=== PATIENT | female | born 1970 | race Caucasian/White ===

== ENCOUNTER → 2022-04-13 10:06 | Outpatient (CLI) | payer OTHER, SELFPAY ==
--- NOTE | ~2022-04-13 | XR_ITS ---
EXAMINATION: XR lumbar spine 2-3V DATE: 04/13/2022 10:23 INDICATION: Lumbago with sciatica TECHNIQUE: Anteroposterior and lateral views of the lumbar spine, and cone-down lateral view of the l umbosacral junction were obtained. COMPARISON: None. FINDINGS: Alignment is normal. Vertebral body heights are normal. Moderate disc height loss at L5-S1 and T9-T10 and T10-T11. Mild disc height loss at T11-T12, L1-L2 and L3-L4. Multilevel mild lumbar facet osteoar thritis. Sacrum, bilateral sacral iliac joints and hip joints are normal. IUD in expected position pr ojecting over the central pelvis. IMPRESSION: 1. Moderate lower thoracic and lumbosacral spondylosis with mild intervening lumbar spondylosis. Reviewed, dictated and finalized at location A. IMPRESSION: 1. Moderate lower thoracic and lumbosacral spondylosis with mild intervening carlos mbar spondylosis.
== END ==
PROVIDERS: PCP Nurse Practitioner Family; Visit Provider Nurse Practitioner Family
DX: M54.40 Lumbago with sciatica, unspecified side (principal); M47.894 Other spondylosis, thoracic region; M47.896 Other spondylosis, lumbar region
CPT/HCPCS: 72100

== ENCOUNTER → 2022-06-21 07:04 | Outpatient (CLI) | payer OTHER, SELFPAY ==
--- NOTE | ~2022-06-21 | MR_ITS ---
EXAMINATION: MR lumbar spine wo con DATE: 06/21/2022 07:43 INDICATION: Lumbar radiculopathy TECHNIQUE: Magnetic resonance imaging (MRI) of the lumbar spine was performed without intravenous con trast. Sequences included sagittal T2-weighted FSE, sagittal T2-weighted FS FSE, sagittal T1-weighted FSE, and axial T2-weighted FSE. COMPARISON: None FINDINGS: 2-3 mm retrolisthesis L4 on L5 and L5-S1. Vertebral body heights are normal. Normal marrow signal. M oderate disc height loss with annular fissure at L5-S1. Mild disc desiccation with minimal disc heigh t loss at L3-L4 and L4-L5. The conus medullaris terminates at T12-L1. There is normal signal in the c audal spinal cord. Paravertebral soft tissues are unremarkable. The following disc levels are specifi ruddy discussed: T12-L1: The disc does not extend beyond the endplate margin. There is no facet joint osteoarthritis. There is no neural foraminal stenosis. There is no central canal stenosis. L1-L2: The disc does not extend beyond the endplate margin. There is mild right and minimal left face t joint osteoarthritis. There is no neural foraminal stenosis. There is no central canal stenosis. L2-L3: The disc does not extend beyond the endplate margin. There is mild right and minimal left face t joint osteoarthritis. There is no neural foraminal stenosis. There is no central canal stenosis. L3-L4: Disc is mildly bulging. There is mild bilateral facet joint osteoarthritis. There is no neural foraminal stenosis. There is no central canal stenosis. L4-L5: Disc is moderately bulging. There is mild right and mild to moderate left facet joint osteoart hritis. There is mild bilateral neural foraminal stenosis. There is minimal central canal stenosis. L5-S1: Disc is mildly bulging with superimposed annular fissure and small right paracentral disc extr usion with disc material extending a couple millimeter cephalad and caudal to the level of the endpla te margins There is mild left and minimal right facet joint osteoarthritis. There is mild right and m inimal left neural foraminal stenosis. There is no central canal stenosis. IMPRESSION: 1. Moderate disc height loss with annular fissure at L5-S1. Otherwise minimal to mild lumbar spondylo sis. Reviewed, dictated and finalized at location B. IMPRESSION: 1. Moderate disc height loss with annular fissure at L5-S1. Otherwise minimal t o mild lumbar spondylosis.
== END ==
PROVIDERS: PCP Nurse Practitioner Family; Visit Provider Nurse Practitioner Family
DX: M47.26 Other spondylosis with radiculopathy, lumbar region (principal)
CPT/HCPCS: 72148

== ENCOUNTER 2022-07-05 08:00 | Outpatient (RCR) | payer OTHER, SELFPAY ==
--- NOTE | 2022-05-25 14:28 | PTOPEVAL1 ---
Assessment and note entered by Kathya Sylvester, PT Evaluation Information Assessment Status Evaluation Diagnosis low back pain, chronic pain Onset consistant pain since 2012 Subjective Information Katerin reports: had xrays, show arthritis; insurance will not cover MRI until have PT; to have pain management appt Jun 11; to see neurologist for migraines Jun 14; has gained about 40# with taking a new meds, now stopped the med and working on wt loss; is walking for fitness,1 -1&1/2 miles; had PT in the past, still do some of the exercises that help: all 4 arch/sag, sitting trunk flexion; Reported Pain Level Pain Score Self Report range of 2-10/10 Additional Pain Score Comments increase pain in back with cleaning home-mopping, cleaning bath tub; transfer sit to stand; sitting 2-3 hours; stand 10 min; able to sleep, with meds , but if roll over wakes her up with back pain decrease pain with heat; have used home TENS in past, it is broken now; biofreeze; hot tub; maloxicam; Oswestry self assessment functional score of 36% limitation in activity level; Assessment PT Clinical Summary Katerin has the diagnosis of lumbago with sciatica and other pain. She reports chronic back pain, migraines, neck pain, B shoulder, knee and foot pain. She is going to have a breast reduction in Dec to help ease her neck,posterior shoulder and thoracic pain. Back pain is increased with sitting, standing, rolling over in bed, transfer from sit to stand; radicular pain into R LE to ankle and L to knee. Oswestry self assessment functional score of 36% limitation in activity level. With the evaluation, she has good flexibility of her trunk and hips; standing trunk flexion is more pain increase than extension; there is tenderness over sacrum and lower lumbar areas, with weakness over posterior trunk and hips. Skilled PT services are indicated for modalities to decrease pain, therapeutic exercises to strengthen her trunk and education for home exercises and methods of pain management. Plan of Care Interventions Electrical Stimulation,Hot Pack/Cold Pack,Manual Therapy,Mechanical Traction,Neuro Re-education, Patient/Caregiver Education,Therapeutic Activities, Therapeutic Exercise,Ultrasound PT Services [facility]
--- NOTE | 2022-05-25 14:29 | PCPTNOTE ---
at the evaluation appointment, pt reports she will be out of town for work training for the next 2 weeks, returning Jun 09. Treatment will begin when she returns.
--- NOTE | 2022-07-05 08:47 | PTOPPROG ---
Assessment and note entered by Kathya Sylvester, PT Evaluation Information Assessment Status Progress ----HOLD PT Diagnosis low back pain, chronic pain Onset consistant pain since 2012 Subjective Information Katerin reports: pain ebbs and flows, pain varies from day to day; some of the exercises feel better and help; had MRI of low back and going to get the results from the dr today; to have MRI of neck for headaches later today; has learned some tips to help her pain; does not feel like she needs any more therapy--want to see the dr and find out if have to have surgery or not; pain range of 2-10/10; achey, sometimes stabby pain; pain increases with activity and prolonged positions; pain decreases with heat/hot bath, pain cream numbs it a little; have ordered a stim unit for home use; used a back brace for traveling in the car distance and it helped; radicular pain into R LE to toes, tingling and numb/ radicular pain into L LE to knee at worst--intermittent into legs; reported standing tolerance 30-60 min; if sit to long, pain when going to stand up; rolling in bed increases pain--get stuck and problems moving and rolling over; self assessment Oswestry functional score of 52% limitation in activity level; discussed home stim unit use and pad placement for pain in back Assessment PT Clinical Summary Katerin has received 7 PT sessions. Compared to the initial evaluation: pain rating is the same; radicular pain into R LE is worse, from ankle into foot intermittent/ L LE pain same; self assessment Oswestry is worse, from 36% to 52% limitation in activity level; reported standing tolerance increased; continues to have pain with rolling in bed, sit to stand transfers; increase in trunk and hip strength; indep with home exercise program; educated on a few tips for pain management. The goals were partially achieved. Will place PT on HOLD--she is to see her dr and get results from MRI and discuss if she is a surgical candidate or not. If additional PT is indicated, pt is to obtain a new order for PT treatment to continue. Plan of Care PT Services Indicated HOLD PT, if to continue,need new orders These treatments will address the objective and functional deficits as defined above. The patient will be advanced safely and appropriately in order for the patient to progress towards his/her prior level of function. Additional exercises will be introduced and as well as a comprehensive home exercise program upon discharge, if needed, ?to ensure carryover of functional gains achieved in the clinic. This treatment plan has been reviewed and agreement upon by the patient.
--- NOTE | 2022-07-05 08:58 | PCPTNOTE ---
HOLD PT after today's reeval/progress report; she is going to see , await new orders if therapy is to continue; she may be having surgery/ consult for surgery;
--- NOTE | 2022-08-08 10:33 | PCPTNOTE ---
PHYSICAL THERAPY DISCHARGE 08-08-22 Attending Provider: Annette Lazo NP Patient:Katerin Israel Date of :1970 Mrs. Israel has not returned for any PT treatment, for the diagnosis of low back pain, since the reevaluation on 07/05/2022, therefore she will be discharged at this time. Refer to that report for her status at the last session. Thank you for referring this patient to [facility].
== END 2022-08-08 11:34 | disposition home or self-care (01) ==
LOC: ANHPT 08:00
PROVIDERS: PCP Nurse Practitioner Family; Referring Provider Nurse Practitioner Family; Visit Provider Nurse Practitioner Family
DX: M54.40 Lumbago with sciatica, unspecified side (principal); G89.29 Other chronic pain
CPT/HCPCS: 97014; 97110; 97140; 97161; G0283

== ENCOUNTER 2022-07-09 08:59 | Outpatient (CLI) | payer OTHER, SELFPAY ==
[2022-07-10 10:20] LABS: Kit Draw Collected
== END 2022-07-09 09:00 | disposition home or self-care (01) ==
LOC: ANHGOSHLAB 09:03
PROVIDERS: PCP Family Medicine; Visit Provider Nurse Practitioner Family
DX: F32.A Depression, unspecified (principal); R53.83 Other fatigue; E55.9 Vitamin D deficiency, unspecified; Z13.220 Encounter for screening for lipoid disorders; Z53.8 Procedure and treatment not carried out for other reasons
CPT/HCPCS: 99199; 36415

== ENCOUNTER 2022-08-11 09:06 | Outpatient (CLI) | payer OTHER, SELFPAY ==
--- NOTE | ~2022-08-11 | MM_ITS ---
EXAMINATION: MM scrn cayla implant BI w aniyah HISTORY: Screening mammogram TECHNIQUE: Craniocaudal and mediolateral oblique 3-D tomosynthesis images with implant displacement a nd synthetic 2-D images were generated. Craniocaudal and mediolateral oblique views of the breasts wi thout implant displacement were obtained using full field digital mammography. CAD analysis was submi tted and interpreted. COMPARISON: No prior mammogram is available for comparison at this institution. BREAST PARENCHYMAL COMPOSITION: There are scattered areas of fibroglandular density. FINDINGS: RIGHT BREAST: There is no evidence of suspicious mass, calcification, or architectural distortion to suggest malignancy. LEFT BREAST: A mass is present in the middle third outer breast 9 cm from the nipple. IMPRESSION: 1. Left breast mass. 2. Additional mammographic views and possible breast ultrasound are recommended. BI-RADS Category 0: Incomplete: Needs additional imaging evaluation. Reviewed, dictated and finalized at location A. WARE INTEGRATION DEVELOPER IMPRESSION: 1. Left breast mass. 2. Additional mammographic views and possible breast ultrasound are recommended . BI-RADS Category 0: Incomplete: Needs additional imaging evaluation.
== END 2022-08-11 09:07 | disposition home or self-care (01) ==
PROVIDERS: PCP Family Medicine; Visit Provider Surgery Plastic and Reconstructive Surgery
DX: Z12.31 Encounter for screening mammogram for malignant neoplasm of breast (principal); R92.8 Other abnormal and inconclusive findings on diagnostic imaging of breast
CPT/HCPCS: 77063; 77067

== ENCOUNTER 2022-08-21 01:02 | Day surgery (SDC) | payer OTHER, SELFPAY ==
[2022-08-09 16:54] VITALS: BMI 25.8
--- NOTE | 2022-08-09 16:58 | PC.NURSE ---
Report to the Outpatient Waiting Room, entrance under the green pavilion located off [facility], at time 0600 on date 08/21/22. Planned Procedure Time: 0730. Time changes happen often and if your time is changed the preop area will call you the afternoon before. - You and your visitor will be asked to self-screen and do not enter if you have any COVID symptoms. - Only one visitor is requested with a max of two and NO children visitors are allowed at this time. - The patient visitor may be requested to leave or wait in car when not with patient due to distancing restrictions. - A mask is optional within the hospital. Patients may have clear liquids (water, carbonated beverages, clear teas, apple juice) until 3 hours prior to surgery with a maximum of 20 ounces. - No food from midnight until time of surgery - Infants may have breast milk until 4 hours before surgery, infant formula 6 hours prior to surgery. - Children will be allowed to drink immediately following surgery. If applicable, please bring a bottle or sippy cup to assist with drinking. Juice, water, soda, and popsicles are readily available. For infants on formula, please bring formula the day of surgery. Pacifiers are allowed. Take the following medications with a SIP of water the morning of surgery: hold morning meds Medications to discontinue per physician supplements and vitamins Date to take last dose Please no make-up, nail comoran, hairspray, perfume, deodorant, or body powder the day of surgery. No jewelry (including any body piercings) or valuables the day of surgery, leave them at home. Please take a shower or bath the night before, or the morning of, surgery with an antibacterial soap. Wear comfortable, loose fitting clothing. Children are encouraged to wear pajamas. - Jewelry must be removed prior to entering the operating room. Rings and piercings that are not removed may be cut off. - The hospital will not accept responsibility for valuables. - Please leave all valuables, including medications, at home the day of surgery. If you are going home after surgery, a licensed courtesy bus driver must drive you home. - NO public transportation without another adult if you receive anesthesia. - We recommend that an adult stay with you for 24 hours following discharge. - We also recommend that you do not drive, make important decision, drink alcoholic beverages, or take any drugs that were not prescribed by your health care provider for at least 24 hours after your discharge time. For Pediatric surgeries, we recommend two adults accompany the child home. Follow any additional instructions given to you from your surgeon. If you or anyone in your household have experienced Covid symptoms in the past week, please notify your surgeon or the nurse liaison at the phone number below for possible testing. Telephone instructions given to _patient__and asked if any additional questions and then verbalized understanding. Patient advised to call surgeon office or pre surgery nurse liaison [phone] if any additional questions.
[2022-08-21] VITALS (7 sets, daily range): BP systolic 98–125; BP diastolic 69–79; PULSE 67–93; RESP 10–18; TEMP 36.6–36.9; O2SAT 98–100
[2022-08-21 06:35] LABS: Urine Cotinine NEGATIVE
[2022-08-21] MEDS: LACTATED RINGERS 1,000 ML 30 ML IV CONT ×2 (06:45→09:43)
--- NOTE | 2022-08-21 07:08 | WPDHPUPDATE1 ---
History and Physical Update Update Date/Time: 08/21/22 07:08 History and Physical has been reviewed, including an updated exam of the patient. There are NO changes in the patient's condition. Risks, benefits, and alternatives have been discussed and questions answered. Patient agrees to proceed with procedure.
--- NOTE | 2022-08-21 07:09 | P.OP_ITS ---
Procedure Note - Detailed Date of Procedure 08/21/22 Pre-op Diagnosis hx of breast augmentation, macromastia Post-op Diagnosis Same Procedure Performed Bilateral breast implant removal with bilateral reduction mammaplasty Surgeon Dane Lee MD Anesthesia General Findings Implants removed: Bilateral [place] 50cc implants Right [id number] Left [id number] Superior Pedicle Inverted T Tissue removed: Right - 351.8 grams Left - 355.7 grams Description of Procedure She is here today for bilateral breast implant removal and bilateral breast reduction. Previously and again today the risks, benefits, alternatives were discussed in extensive detail. I wanted her to be very realistic about the risks involved as well as expectations. She understands we may not remove entire capsule. She understands the capsule and breast tissue would be additional expense to her. We discussed aftercare and what to monitor for. She understands we can never guarantee final breast size and there will always be asymmetry. I was very upfront and honest about the risks of sensation change and even nipple loss (). Made sure answered all of her questions to her satisfaction today and consent was obtained. She was marked in the preoperative holding area with their verification. The patient was taken to the operating room placed supine on the operating table. Anesthesia was provided by anesthesiology. She was prepped and draped in a standard sterile fashion. A surgical time-out was taken. 1% lidocaine and 0.25% marcaine with epi was used as a field block. I incised along the IMF and dissection was continued until the capsule was identified. I elevated just superficial to the capsule. The implant and capsule was removed (partial capsulectomy). I then copiously irrigated with saline solution and verified a strict hemostasis. I then sat the patient and re-verified the markings. I then returned the patient supine. I marked out the nipple-areolar complex at 42 mm. I then de-epithelialized the pedicle. The pedicle was well left well more than 2 cm in thickness. I then removed the inferior portion of the breast as well as the central keel to get shape based on preoperative planning. At this point copiously irrigated with saline solution and verified a strict hemostasis. I reapproximated the pillars using a 2-0 PDS. I tailor tacked the breast into place with tone. She was placed in a sitting position. I verified the nipple-areolar complex position based on preoperative markings, intraoperative measurements, and observation which were in full agreement. This nipple-areolar complex was marked at 42 mm in size. I then placed supine and de-epithelialized this. Nipple-areolar complex was inset with 3-0 Monocryl. I closed IMF deep with 1 strattafix. I closed the vertical incision with 3-0 Monocryl in the IMF with 3- 0 stratafix. Then everything was closed using a running subcuticular 4-0 Monocryl followed by Steri-Strips. A dressing was placed followed by surgical bra. Patient was awoke and taken to PACU without difficulty. All instrument sponge counts were correct at the end of the case. Estimated Blood Loss 40 Drains No Packing No Pathology Yes (Bilateral breast implant capsules and breast tissue.) Complications No immediate complications Condition Stable Disposition PACU
--- NOTE | 2022-08-21 07:09 | WPDHPUPDATE1 ---
History and Physical Update Update Date/Time: 08/21/22 07:09 History and Physical has been reviewed, including an updated exam of the patient. There are NO changes in the patient's condition. Risks, benefits, and alternatives have been discussed and questions answered. Patient agrees to proceed with procedure.
--- NOTE | 2022-08-21 07:13 | WPDANESEPPF ---
Anes - Initial Pre Proc Eval Procedure: Operation Date: 08/21/22 07:30 Proposed Procedures p Removal of Bilateral Breast Implants - Dane Lee MD s Bilateral Breast Reduction - Dane Lee MD Date/Time: 08/21/22 07:13 Surgeon: Dane Lee MD Pre Op Diagnosis: hx of breast augmentation, macromastia Patient Data Age: 51 Gender: F Height: 1.73 m Weight: 77.11 kg Allergies Allergy/AdvReac Type Severity Reaction Status Date / Time bee venom protein (honey bee) Allergy Severe Anaphylactic Verified 08/09/22 17:06 [bees] Shock cephalexin Allergy Severe Redness of Verified 08/06/22 12:58 Skin latex AdvReac Intermediate Itching Verified 08/09/22 17:06 Home Medications Medication Instructions Recorded Confirmed Type albuterol sulfate 90 mcg/actuation 1 puff inhalation Q4H PRN 03/23/22 08/09/22 History aerosol inhaler Shortness Of Breath cetirizine 10 mg tablet (Zyrtec) 10 mg PO DAILY 03/23/22 08/09/22 History cholecalciferol (vitamin D3) 250 250 mcg PO DAILY 03/23/22 08/09/22 History mcg (10,000 unit) capsule montelukast 10 mg tablet 10 mg PO DAILY 03/23/22 08/09/22 History potassium iodide 65 mg tablet 130 mg PO DAILY 03/23/22 08/09/22 History tizanidine 4 mg tablet 4 mg PO QHS 03/23/22 08/09/22 History topiramate 50 mg tablet 200 mg PO QHS 03/23/22 08/09/22 History vitamin B complex (B 1 tablet PO DAILY 03/23/22 08/09/22 History Complex-Vitamin B12 tablet) bupropion HCl 150 mg 24 hr tablet, 150 mg PO QAM #60 tabs 07/09/22 08/09/22 Rx extended release eszopiclone 2 mg tablet (Lunesta) 2 mg PO QHS #30 tabs 08/06/22 08/09/22 Rx phentermine 37.5 mg capsule 37.5 mg PO DAILY #30 caps 08/06/22 08/09/22 Rx fluticasone propionate 50 1 spray intranasal DAILY 08/09/22 08/09/22 History mcg/actuation nasal spray,suspension Laboratory Tests 08/21/22 06:18 Cotinine Negative Patient hx anesthesia problems: none Family hx anesthesia problems: none Results Review: All pre-operative results and documents have been reviewed as part of the pre-operative evaluation. COUNTS INCLUDE 234 BEDS AT THE [facility] Past Medical History Medical History ADHD Asthma Depression Herniated disc Insomnia Migraine Vitamin D deficiency Surgical History Surgical History H/O breast augmentation Hx of abdominoplasty Family History Family History Father Congestive heart failure COPD (chronic obstructive pulmonary disease) Emphysema lung Kidney failure Mother Hypertension High cholesterol Thyroid disease Alzheimer disease Sibling Arthritis Social History Social History Smoking status: Never smoker Alcohol intake: current Drinks per week: 4 Alcohol use details: 4 glasses weekly Substance use: never Substance use type: does not use Lack of Transportation: No Lack of Food: Never True Current Housing: I Have Housing Concerned About Future Housing: No Difficulty Paying Gas/Electric Bills: No Difficulty Paying for Meds: No Currently Unemployed: No Education: Master's Degree or Higher Difficulty w/ Childcare or Family Care: No Living arrangements: with family Additional occupation/education comments: [employer] long[employer] Gender identity (if verbalized by the patient): Female 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
[2022-08-21] MEDS: SCOPOLAMINE 1.5 MG PATCH TRANSDERM (07:15)
[2022-08-21] MEDS: CLINDAMYCIN 900 MG/D5W 50 ML 900 MG/50 ML PIGGYBACK 50 MG IVPB (07:27)
[2022-08-21] MEDS: TRANEXAMIC ACID 1,000MG/ISO100 1,000 MG/100 ML BAG 200 MG IVPB (07:43)
[2022-08-21] MEDS: BUPIVACAINE/EPINEPHRINE 0.5% 10 ML VIAL 30 ML INFILTRATE (08:05)
[2022-08-21] MEDS: LIDOCAINE HCL 1% PF 30 ML VIAL INFILTRATE (08:05)
[2022-08-21] MEDS: fentaNYL CITRATE INJ (*CRX) 100 MCG/2 ML VIAL 25 MCG IV PUSH (10:10)
[2022-08-21] MEDS: oxyCODONE HCL (*CRX) 5 MG TAB IR PO (10:28)
[2022-08-21] MEDS: ONDANSETRON HCL ODT 4 MG TABLET PO (11:17)
== END 2022-08-21 11:20 | disposition home or self-care (01) ==
PROVIDERS: PCP Family Medicine; Visit Provider Surgery Plastic and Reconstructive Surgery
PROC: 0HPT0JZ Removal of Synthetic Substitute from Right Breast, Open Approach (ICD-10-PCS; CPT 19370; principal; 2022-08-21 07:30)
PROC: 0HBV0ZZ Excision of Bilateral Breast, Open Approach (ICD-10-PCS; CPT 19318; 2022-08-21 07:30)
DX: Z45.812 Encounter for adjustment or removal of left breast implant (principal); Z45.811 Encounter for adjustment or removal of right breast implant; N62 Hypertrophy of breast; J45.909 Unspecified asthma, uncomplicated; E55.9 Vitamin D deficiency, unspecified; F32.A Depression, unspecified; Z79.51 Long term (current) use of inhaled steroids
CPT/HCPCS: 19370; 19318; 80307; 88304; 88305; A9270; J0171; J1100; J1170; J2250; J2405; J2704; J2710; J3010; J7120

== ENCOUNTER 2022-11-20 08:00 | Outpatient (RCR) | payer OTHER, SELFPAY ==
[2022-11-20 09:10] VITALS: BMI 25.8
[2022-11-20 09:11] VITALS: BMI 25.8
== END 2023-02-05 08:52 | disposition home or self-care (01) ==
LOC: ANHDMC 08:00
PROVIDERS: PCP Family Medicine; Visit Provider Nurse Practitioner Family
DX: Z68.25 Body mass index [BMI] 25.0-25.9, adult (principal); Z71.3 Dietary counseling and surveillance
CPT/HCPCS: 97802

== ENCOUNTER → 2023-03-29 12:41 | Outpatient (CLI) | payer OTHER, SELFPAY ==
--- NOTE | ~2023-03-29 | US_ITS ---
Abdominal Sonogram: Real-time sonographic imaging of the abdomen was performed. Clinical History: Abdominal pain Findings: The liver appears normal with no evidence of mass lesion or bile duct dilatation. Main por gina vein demonstrates normal direction of flow. The spleen is normal in size without evidence of foca l lesion. The gallbladder is well distended, and appears normal with no evidence of gallstone or wal l thickening. The common bile duct measures 4 mm. The visualized pancreas, aorta, and IVC are unrema rkable. The right kidney measures 9.6 cm in length and the left kidney measures 10.3 cm. There is n o hydronephrosis or renal calculus. Impression: Unremarkable abdominal ultrasound. Reviewed, dictated and finalized at location . Impression: Unremarkable abdominal ultrasound.
== END ==
PROVIDERS: PCP Nurse Practitioner Family; Visit Provider Nurse Practitioner Family
DX: R10.32 Left lower quadrant pain (principal)
CPT/HCPCS: 76700

== ENCOUNTER 2023-06-11 00:20 | Day surgery (SDC) | payer OTHER, SELFPAY ==
[2023-05-30 14:30] VITALS: BMI 25.9
[2023-06-11 09:47] VITALS: BP 111/78; PULSE 83; RESP 16; TEMP 35.8; O2SAT 98
[2023-06-11] MEDS: LACTATED RINGERS 1,000 ML 150 ML IV CONT (09:52)
--- NOTE | 2023-06-11 10:16 | PM.HPGS ---
History of Present Illness History of Present Illness Consent: Risks, benefits, and alternatives have been discussed and questions answered. Patient agrees to proceed with procedure. Chief complaint: neoplasm screening Narrative: Katerin Johns is a 52 year old female Presents for screening colonoscopy. Patient reports her weight appetite bowel movements are normal. She does feel bloated with an occasional firm abdomen. Currently followed by Gynecology. She denies any blood in her stools. She has never had previous screening colonoscopy. Family history is noncontributory. Review of Systems Review of Systems: Review of systems noncontributory. [facility] Past Medical History Medical History ADHD Asthma Depression GERD without esophagitis Herniated disc History of systemic reaction to bee sting Insomnia Migraine Vitamin D deficiency Surgical History Surgical History Hx of abdominoplasty Family History Family History Father Congestive heart failure COPD (chronic obstructive pulmonary disease) Emphysema lung Kidney failure Mother Hypertension High cholesterol Thyroid disease Alzheimer disease Sibling Arthritis Social History Social History Social History: Katerin is newly , she has 1 child still living at home, 2 adult children. 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 Smoking status: Never smoker Alcohol intake: current Drinks per week: 3 Alcohol use details: 4 glasses weekly Substance use: never Substance use type: does not use Lack of Transportation: No Lack of Food: Never True Current Housing: I Have Housing Concerned About Future Housing: No Difficulty Paying Gas/Electric Bills: No Difficulty Paying for Meds: No Currently Unemployed: No Education: Master's Degree or Higher Difficulty w/ Childcare or Family Care: No Living arrangements: with family Occupation/Education: occupation Additional occupation/education comments: [employer] Gender identity (if verbalized by the patient): Female 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 Sexual Orientation (if Verbalized by the Patient): Straight or Heterosexual Spiritual care concerns: No Agree to blood products: Yes Meds Home Medications and Allergies Home Medications Medication Instructions Recorded Confirmed Type vitamin B complex (B 1 tablet PO DAILY 03/23/22 06/11/23 History Complex-Vitamin B12 tablet) fluticasone propionate 50 1 spray intranasal DAILY 08/09/22 06/11/23 History mcg/actuation nasal spray,suspension valacyclovir 1 gram tablet 1,000 mg PO Q8H PRN cold sores #30 10/17/22 06/11/23 Rx tabs epinephrine 0.3 mg/0.3 mL 0.3 mg (0.3 mL) IM ONCE bee stings 12/03/22 06/11/23 Rx injection, auto-injector (EpiPen #2 ea 2-Bruno) methocarbamol 500 mg tablet 500 mg PO TID PRN neck pain #30 12/03/22 06/11/23 Rx tabs pantoprazole 40 mg tablet,delayed 40 mg PO QAM #90 tabs 12/03/22 06/11/23 Rx release terconazole 0.8 % vaginal cream 1 appful vaginal QHS 3 days #20 02/12/23 06/11/23 Rx grams bupropion HCl 300 mg 24 hr tablet, 300 mg PO QAM #90 tabs 05/06/23 06/11/23 Rx extended release zolpidem 10 mg tablet (Ambien) 10 mg PO QHS PRN insomnia #90 tabs 05/28/23 06/11/23 Rx albuterol sulfate 90 mcg/actuation 1 puff inhalation Q4H PRN 06/03/23 06/11/23 Rx aerosol inhaler Shortness Of Breath #6.7 grams Allergies Allergy/AdvReac Type Severity Reaction Status Date / Time bee venom protein (honey bee) Allergy Severe Anaphylactic Verified 06/11/23 09:45 [bees] Shock cephalexin Allergy Severe Redness of Verified 06/11/23
[2023-06-11 10:41] VITALS: BP 111/73; PULSE 68; RESP 19; O2SAT 98
--- NOTE | 2023-06-11 10:44 | WPDANESEPPF ---
Anes - Initial Pre Proc Eval Procedure: Operation Date: 06/11/23 11:00 Proposed Procedures p Screening Colonoscopy - Robbie Jang MD Date/Time: 06/11/23 10:44 Surgeon: Robbie Jang MD Pre Op Diagnosis: neoplasm screening Patient Data Age: 52 Gender: F Height: 1.73 m Weight: 79.9 kg Last Vital Signs Temp 96.4 F L 06/11/23 09:47 Pulse 83 06/11/23 09:47 Resp 16 06/11/23 09:47 BP 111/78 06/11/23 09:47 Pulse Ox 98 06/11/23 09:47 O2 Del Method Room Air 06/11/23 09:47 Allergies Allergy/AdvReac Type Severity Reaction Status Date / Time bee venom protein (honey bee) Allergy Severe Anaphylactic Verified 06/11/23 09:45 [bees] Shock cephalexin Allergy Severe Redness of Verified 06/11/23 09:45 Skin latex AdvReac Intermediate Itching Verified 06/11/23 09:45 Home Medications Medication Instructions Recorded Confirmed Type vitamin B complex (B 1 tablet PO DAILY 03/23/22 06/11/23 History Complex-Vitamin B12 tablet) fluticasone propionate 50 1 spray intranasal DAILY 08/09/22 06/11/23 History mcg/actuation nasal spray,suspension valacyclovir 1 gram tablet 1,000 mg PO Q8H PRN cold sores #30 10/17/22 06/11/23 Rx tabs epinephrine 0.3 mg/0.3 mL 0.3 mg (0.3 mL) IM ONCE bee stings 12/03/22 06/11/23 Rx injection, auto-injector (EpiPen #2 ea 2-Bruno) methocarbamol 500 mg tablet 500 mg PO TID PRN neck pain #30 12/03/22 06/11/23 Rx tabs pantoprazole 40 mg tablet,delayed 40 mg PO QAM #90 tabs 12/03/22 06/11/23 Rx release terconazole 0.8 % vaginal cream 1 appful vaginal QHS 3 days #20 02/12/23 06/11/23 Rx grams bupropion HCl 300 mg 24 hr tablet, 300 mg PO QAM #90 tabs 05/06/23 06/11/23 Rx extended release zolpidem 10 mg tablet (Ambien) 10 mg PO QHS PRN insomnia #90 tabs 05/28/23 06/11/23 Rx albuterol sulfate 90 mcg/actuation 1 puff inhalation Q4H PRN 06/03/23 06/11/23 Rx aerosol inhaler Shortness Of Breath #6.7 grams Patient hx anesthesia problems: none Family hx anesthesia problems: none Results Review: All pre-operative results and documents have been reviewed as part of the pre-operative evaluation. [facility] Past Medical History Medical History ADHD Asthma Depression GERD without esophagitis Herniated disc History of systemic reaction to bee sting Insomnia Migraine Vitamin D deficiency Surgical History Surgical History Hx of abdominoplasty Family History Family History Father Congestive heart failure COPD (chronic obstructive pulmonary disease) Emphysema lung Kidney failure Mother Hypertension High cholesterol Thyroid disease Alzheimer disease Sibling Arthritis Social History Social History Social History: Katerin is newly , she has 1 child still living at home, 2 adult children. 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 Smoking status: Never smoker Alcohol intake: current Drinks per week: 3 Alcohol use details: 4 glasses weekly Substance use: never Substance use type: does not use Lack of Transportation: No Lack of Food: Never True Current Housing: I Have Housing Concerned About Future Housing: No Difficulty Paying Gas/Electric Bills: No Difficulty Paying for Meds: No Currently Unemployed: No Education: Master's Degree or Higher Difficulty w/ Childcare or Family Care: No Living arrangements: with family Occupation/Education: occupation Additional occupation/education comments: [employer] Gender identity (if verbalized by the patient): Female 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
[2023-06-11 11:21] VITALS: BP 97/56; PULSE 78; RESP 21; O2SAT 95
[2023-06-11 11:31] VITALS: BP 93/61; PULSE 72; RESP 17; O2SAT 97
== END 2023-06-11 11:47 | disposition home or self-care (01) ==
PROVIDERS: PCP Nurse Practitioner Family; Visit Provider Internal Medicine Gastroenterology
PROC: 0DJD8ZZ Inspection of Lower Intestinal Tract, Via Natural or Artificial Opening Endoscopic (ICD-10-PCS; CPT 45378; principal; 2023-06-11 11:00)
DX: Z12.11 Encounter for screening for malignant neoplasm of colon (principal); K64.8 Other hemorrhoids; K57.30 Diverticulosis of large intestine without perforation or abscess without bleeding; F90.9 Attention-deficit hyperactivity disorder, unspecified type; J45.909 Unspecified asthma, uncomplicated; K21.9 Gastro-esophageal reflux disease without esophagitis; F32.A Depression, unspecified; E55.9 Vitamin D deficiency, unspecified; Z79.51 Long term (current) use of inhaled steroids
CPT/HCPCS: 45378; J2704; J7120

== ENCOUNTER → 2023-08-29 10:00 | Outpatient (CLI) | payer OTHER, SELFPAY ==
--- NOTE | ~2023-08-29 | US_ITS ---
EXAMINATION: US pelvic complete w TV DATE: 08/29/2023 10:32 INDICATION: Ovarian cyst TECHNIQUE: Multiple transabdominal and endovaginal sonographic images of the pelvis were obtained. COMPARISON: None. FINDINGS: The uterus measures 9.3 x 5.8 x 3.8 cm. The endometrial complex measures 6 mm. An IUD is no steven in in expected position. There is a 1.6 cm nabothian cysts of cervix. The right ovary measures 3. 8 x 3.5 x 2.1 cm and contains a 2.1 cm cyst. The left ovary measures 1.3 x 1.9 x 1.6 cm. There is nor mal vascular flow in the ovaries. There is no free fluid in the pelvis. IMPRESSION: 1. 2.1 cm simple cyst of the right ovary Reviewed, dictated and finalized at location [facility]. [employer]
== END ==
DX: N83.291 Other ovarian cyst, right side (principal); R89.1 Abnormal level of hormones in specimens from other organs, systems and tissues
CPT/HCPCS: 76830; 76856

== ENCOUNTER 2023-10-28 11:55 | Outpatient (CLI) | payer OTHER, SELFPAY ==
--- NOTE | ~2023-10-28 | XR_ITS ---
Right foot Technique: AP, oblique, and lateral views were obtained. Clinical History: MAXWELL positive Findings: No acute fracture or dislocation is seen. Osseous alignment is anatomic. Joint spaces are p reserved without erosive or degenerative change. Soft tissues are unremarkable. Impression: Unremarkable right foot radiographs. Reviewed, dictated and finalized at [facility]. E TECH Impression: Unremarkable right foot radiographs.
--- NOTE | ~2023-10-28 | XR_ITS ---
Right Shoulder Technique: AP and scapular Y views were obtained. Clinical History: MAXWELL positive Findings: No fracture or dislocation is seen. Osseous alignment is anatomic. The glenohumeral and acr omioclavicular joint spaces are preserved. Soft tissues are unremarkable. Impression: Unremarkable right shoulder radiographs. Reviewed, dictated and finalized at location . ERY CARRIER Impression: Unremarkable right shoulder radiographs.
--- NOTE | ~2023-10-28 | XR_ITS ---
Left Shoulder Technique: AP and scapular Y views were obtained. Clinical History: MAXWELL positive Findings: No fracture or dislocation is seen. Osseous alignment is anatomic. The glenohumeral and acr omioclavicular joint spaces are preserved. Soft tissues are unremarkable. Impression: Unremarkable left shoulder radiographs. Reviewed, dictated and finalized at location . THESIOLOGIST/PHYSICIAN Impression: Unremarkable left shoulder radiographs.
--- NOTE | ~2023-10-28 | XR_ITS ---
AP/oblique views of the SI joints CLINICAL HISTORY: MAXWELL positive FINDINGS: Bilateral hip joints and bilateral SI joints are unremarkable. Soft tissues are unremarkabl e. IUD in place. No fracture. IMPRESSION: Normal exam. Reviewed, dictated and finalized at location . TRUCKER IMPRESSION: Normal exam.
--- NOTE | ~2023-10-28 | XR_ITS ---
Right Hand Technique: PA, oblique, and lateral views were obtained. Clinical History: MAXWELL positive Findings: No acute fracture or dislocation is seen. Osseous alignment is anatomic. Joint spaces are p reserved. Soft tissues are unremarkable. Impression: Unremarkable right hand. Reviewed, dictated and finalized at location M. REGENERATOR Impression: Unremarkable right hand.
--- NOTE | ~2023-10-28 | XR_ITS ---
Left Hand Technique: PA, oblique, and lateral views were obtained. Clinical History: MAXWELL positive Findings: No acute fracture or dislocation is seen. Osseous alignment is anatomic. Joint spaces are p reserved. Soft tissues are unremarkable. Impression: Unremarkable left hand. Reviewed, dictated and finalized at location M. PTURE INSTRUCTOR Impression: Unremarkable left hand.
--- NOTE | ~2023-10-28 | XR_ITS ---
Left foot Technique: AP, oblique, and lateral views were obtained. Clinical History: MAXWELL positive Findings: No acute fracture or dislocation is seen. Osseous alignment is anatomic. Joint spaces are p reserved without erosive or degenerative change. Soft tissues are unremarkable. Impression: Unremarkable left foot radiographs. Reviewed, dictated and finalized at [facility]. HT CONTROL SPECIALIST Impression: Unremarkable left foot radiographs.
== END 2023-10-28 11:56 | disposition home or self-care (01) ==
LOC: ANHIMG 12:00
PROVIDERS: Visit Provider Internal Medicine
DX: R76.8 Other specified abnormal immunological findings in serum (principal)
CPT/HCPCS: 72202; 73030; 73130; 73630

== ENCOUNTER 2024-02-10 12:30 | Outpatient (RCR) | payer OTHER, SELFPAY ==
--- NOTE | 2023-12-13 14:33 | OPREHPOC ---
Outpatient Therapy Plan of Care This is a Multidisciplinary Plan of Care that may contain components documented by all disciplines (PT, OT, and ST.) PT Problem 1 PT Problem #1 Knowledge Deficit PT Goal 1 Goal *indep with HEP PT Problem 2 PT Problem #2 Pain PT Goal 1 Goal 1* pt report worst pain rating of 5/10 2* pt report headaches every other day 3* self assessment Neck Disability Index score of 24% limitation in activity PT Problem 3 PT Problem #3 Impaired Flexibility PT Goal 1 Goal pt perform 3 reps in standing, without an increase in pain, to improve home, driving and self care activities 1* cervical rotation R 2* cervical rotation L 3* R shoulder abduction 4* R shoulder IR 5* R shoulder ER
--- NOTE | 2023-12-13 14:33 | PTOPEVAL1 ---
Assessment and note entered by Kathya Sylvester, PT Evaluation Information Assessment Status Evaluation Diagnosis myalgia, polyarthralgia Onset September 2023 Subjective Information having more neck and shoulder pain with headaches; now have headaches every day; R shoulder more pain than L; is R handed. new referral to arthritic dr due to changes in blood work, when retested, was OK have history of chronic pain in neck and low back; have had multiple treatments for pain-- accupuncture, dry needling, massage, have home gun massager; has NOT had cervical traction chronic back and neck pain; is working with her SPECIAL PROCEDURES NURSE for hormone and weight loss meds. goes to the chiropractor 1x/week for adjustments. Activity: retired in March, does yoga and stretching for neck and back; Reported Pain Level Pain Score Self Report Additional Pain Score Comments pain range in past week 2-7/10; tight, aching, pulls, pressure, knot in back of shoulder that does not go away have headaches daily- last 2 hours to all day; headaches behind eyes and tension ones start back neck and head; increase pain: driving; activity decrease pain; stretch arm back behind with sleeping- take ambien and can sleep about 4-5 hours, then constantly move due to shoulder pain also have LBP; have home stim and use on back but not have used on neck-- instruct on PRN use - and pad placement Assessment PT Clinical Summary Katerin has the diagnosis of myalgia. Her history includes chronic pain in neck and back. At this time, most of her issues are with neck and R shoulder pain, with headaches. She has had multiple rounds of PT treatment for her neck and back. And is currently going to the chiropractor 1x/week for adjustments. Neck Disability Index self rating of 34% limitation in activity. Issues with sleeping and decreased activity level. She recently has retired. With the evaluation: her cervical and bilateral shoulder ROM are WNL, with reports of pain increase with neck and R shoulder motions. There are spasms and tenderne
--- NOTE | 2024-01-06 10:56 | PTOPPROG ---
Assessment and note entered by Kathya Sylvester, PT Progress Information Assessment Status Progress Diagnosis myalgia, polyarthralgia Onset September 2023 Subjective Information feels like she is better- pain is less and able to do more: able to hold the hair or beauty salon manager long enough to dry her hair now, instead of 2-3 x to do it; able to lie on her R side some with sleeping ; therapy with Ultrasound, dry needling and manual helps; PAIN: range in the past week -03/18; headaches every day- duration of few hours to 3 days Assessment PT Clinical Summary Katerin has received a total of 8 sessions. Compared to the initial evaluation: pain rating the same at -03/18; headaches continue to occur daily; self assessment Neck Disability Index rating from 34% to 26% limitation; able to tolerate lying on her R side for a short time; able to perform cervical rotation to R and R shoulder abduction without pain now; continues to have spasms over both upper traps and cervical areas, modalities have decreased. Continue PT treatment for further reduction in pain and increase activity tolerance. Plan of Care Interventions Hot Pack/Cold Pack,Manual Therapy,Mechanical Traction,Neuro Re-education,Patient Education,Therapeutic Activities,Therapeutic Exercise,Ultrasound,Other Other Interventions taping, dry needling PT Services Indicated Yes Treatment Frequency and 2x/wk for 8 visits Duration These treatments will address the objective and functional deficits as defined above. The patient will be advanced safely and appropriately in order for the patient to progress towards his/her prior level of function. Additional exercises will be introduced and as well as a comprehensive home exercise program upon discharge, if needed, ?to ensure carryover of functional gains achieved in the clinic. This treatment plan has been reviewed and agreement upon by the patient.
--- NOTE | 2024-02-10 14:34 | PTOPDC ---
Assessment and note entered by Kathya Sylvester, PT Discharge Report Assessment Status Discharge Diagnosis myalgia, polyarthralgia Onset September 2023 Subjective Information am doing the exercises at home; R shoulder does not hurt any more when move it; neck still hurts and still have headaches; stress seems to bring the pain on more; am going to [place] and want to finish up with therapy. Reported Pain Level Pain Score Self Report Additional Pain Score Comments pain range of neck 1-6/10; R and L neck and upper traps; daily headaches, few hours to few days duration; also have back pain Assessment PT Clinical Summary Katerin has received 16 PT sessions. Compared to the last progress report: pain from 2-7/10 to 1-6/10; continues to have headaches daily with about same duration; cervical active ROM is the same and continues to have pain and pinching reported with cervical rotation to R and L and flexion/extension; no longer has pain with R shoulder motions; self assessment Neck Disability index rating worse, from 26% to 32 % limitation in activity; education completed for posture and HEP. With modalities of US with electrical stim, manual therapy and dry needling, she was able to have some pain relief. The goals were partially met. Discharge PT services. She is to continue with her HEP and posture correction. Plan of Care PT Services Indicated No
== END 2024-02-10 16:36 | disposition home or self-care (01) ==
LOC: ANHPT 12:30
DX: M25.50 Pain in unspecified joint (principal); M79.10 Myalgia, unspecified site
CPT/HCPCS: 97012; 97014; 97032; 97035; 97110; 97140; 97161; 97530; 99199; G0283